=== PATIENT | male | born 1950 | race Caucasian/White ===

== ENCOUNTER 2019-10-24 12:30 | Emergency (ER) | payer OTHER, SELFPAY ==
[2019-10-24 12:41] VITALS: BP 136/72; RESP 18; TEMP 36.1; O2SAT 98
--- NOTE | 2019-10-24 12:47 | DI.CT.S_ITS ---
PROCEDURE: CT HEAD/BRAIN WO CON INDICATIONS: Fall with right orbital laceration. TECHNIQUE: Noncontrast 4.5 mm thick angled axial sections acquired from the foramen magnum to the vertex, with coronal and sagittal reformats. For radiation dose reduction, the following was used: automated exposure control, adjustment of mA and/or kV according to patient size. COMPARISON: [facility], CT, STROKE HEAD AND NECK ANGIO, 03/27/2013, 15:27. [facility], CT, HEAD WITHOUT CONTRAST, 07/27/2016, 23:00. [facility], CT, CT CERVICAL SPINE WO CON, 10/24/2019, 12:43. [facility], CT, HEAD WITHOUT CONTRAST, 09/15/2016, 21:47. FINDINGS: Image quality: Excellent. CSF spaces: Basal cisterns are patent. There is a left-sided drainage catheter is seen within the low-density fluid collection along the lateral/superior aspect of the left frontal lobe. The fluid collection is similar to 2016. The ventricles are symmetric in size and shape. Brain: There is been a remote left temporal lobe resection. There is a 1.2 cm cystic-appearing focus in seen within the right insula, as on series 2 image 14, which is stable compared to 2016. No intracranial bleeds or masses. There is cerebral volume loss for age, with resultant ventricular and sulcal prominence. There are periventricular and deep white matter chronic small vessel ischemic changes. There is intracranial internal carotid artery atherosclerosis. Skull and face: Left sided craniotomy changes are seen. Calvarium and visualized facial bones appear intact, without suspicious lesions. Sinuses: Visualized sinuses and mastoids are clear. IMPRESSION: No acute intracranial hemorrhage is seen. No acute intracranial process is seen. There is a stable extra-axial fluid collection seen along the lateral aspect of the left frontal lobe, which is attributed to a hygroma. There is a drainage catheter seen within the fluid collection. There is a stable cystic lesion involving the right insula. Dictated by: Abdias Landeros M.D. on 10/24/2019 at 11:58 Approved by: Abdias Landeros M.D. on 10/24/2019 at 12:01
--- NOTE | 2019-10-24 12:55 | DI.CT.S_ITS ---
PROCEDURE: CT CERVICAL SPINE WO CON INDICATIONS: Fall TECHNIQUE: Noncontrast 3 mm thick sections acquired from the skull base to the T4 level. Sagittal and coronal reformats were then constructed. For radiation dose reduction, the following was used: automated exposure control, adjustment of mA and/or kV according to patient size. COMPARISON: [facility], CT, CT HEAD/BRAIN WO CON, 10/24/2019, 12:43. [facility], CR, CERVICAL SPINE 2 OR 3 VIEWS, 02/02/2014, 21:55. FINDINGS: Image quality: Excellent. Bones: No fractures or dislocations. Visualized superior ribs are intact. Degenerative changes are seen, with moderate disc space narrowing at C3-C4, C4-C5, and C6-C7. Milder degenerative changes are seen elsewhere, including apparent erosive changes involving the right C4-C5 facet joint. The right C2-C3 facet joint is fused. Soft tissues: Prevertebral soft tissues are normal in thickness. No paravertebral hematomas. No apical pneumothoraces. Pacer leads are partially seen. IMPRESSION: No acute fractures are seen. Degenerative changes are seen. Pacer leads are incidentally noted. Dictated by: Abdias Landeros M.D. on 10/24/2019 at 12:02 Approved by: Abdias Landeros M.D. on 10/24/2019 at 12:03
[2019-10-24 13:00] VITALS: BP 136/78; PULSE 61; O2SAT 94
[2019-10-24 13:07] LABS: Add Manual Diff / Slide Review NO; Basophils Absolute Auto 0 /uL (0-100); Basophils Percent Auto 0.5 % (0-2); Eosinophils Absolute Auto 100 /uL (0-450); Eosinophils Percent Auto 1.2 % (2-4); Hematocrit 48.5 % (41-53); Hemoglobin 16.2 g/dL (13.5-17.5); Lymphocytes Absolute Auto 700 /uL (1100-4500); Lymphocytes Percent Auto 11.3 % (25-40); Mean Corpuscular HGB Conc 33.3 % (30-36); Mean Corpuscular Hemoglobin 29.3 PG (26-34); Mean Corpuscular Volume 87.8 fL (80-100); Monocytes Absolute Auto 600 /uL (0-900); Monocytes Percent Auto 9.6 % (3-14); Neutrophils Absolute Auto 5100 /uL (1500-7000); Neutrophils Percent Auto 77.4 % (50-75); Platelet Count 197 X10^3/uL (150-400); Red Blood Cell Count 5.53 X10^6/uL (4.5-5.9); Red Cell Distribution Width 13.4 % (11.6-14.8); White Blood Cell Count 6.5 X10^3/uL (4.5-11.0)
[2019-10-24] MEDS: LIDOCAINE 2% INJ MDV 10 ML SUBCUT (13:11)
[2019-10-24] MEDS: SODIUM CHLORIDE 0.9% 1,000 ML 1000 ML IV (13:11)
[2019-10-24 13:14] LABS: Alanine Aminotransferase 20 IU/L (<50); Albumin 3.6 g/dL (3.5-5.0); Albumin Globulin Ratio 1.4 (1.0-2.8); Alkaline Phosphatase 61 U/L (38-126); Aspartate Aminotransferase 32 IU/L (17-59); BUN Creatinine Ratio 20.9 (6-22); Bilirubin Total 0.5 mg/dL (0.2-1.3); Blood Urea Nitrogen 23 mg/dL (9-20); Calcium 8.5 mg/dL (8.4-10.2); Carbon Dioxide 27 mmol/L (22-32); Chloride 106 mmol/L (98-107); Estimated Glomerular Filt Rate > 60.0 mL/min (>60); Ethanol (ETOH) < 10 mg/dL; Globulin 2.6 g/dL (1.7-4.1); Glucose 88 mg/dL (80-110); HEMOLYSIS 24 (0-50); Potassium 4.1 mmol/L (3.4-5.1); Sodium 140 mmol/L (137-145); Total Protein 6.2 g/dL (6.3-8.2)
--- NOTE | 2019-10-24 13:25 | PC.NURSE ---
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 Took a GLF on his porch today and hit R head and R orbit on a planter. GCS 14 pt confused, reports year is 1978, having some word salad. unaware of pt's baseline. reports he had some alcohol today. pupils equal and reactive. equal prison officer and pushes. immediate head CT. glucose 89 in field. 18G IV R AC. labs drawn and sent by EMS. Pt with NS infusing. Dr Clarke assessed. awaiting further orders
[2019-10-24 14:30] VITALS: BP 125/68; PULSE 57; RESP 13; O2SAT 96
--- NOTE | 2019-10-24 14:57 | PC.NURSE ---
Pt at bedside. pt speaking more clearly at this time and appears to be less confused than on arrival. he was able to vocalize that before falling he had an intense wave of vertigo and was unable to place his feet underneath him appropriately and fell hitting his head on an umbrella stand. reports that aphasia and some confusion is baseline but seems increasingly more confused today. Reports that the flu has been going around the house starting on Monday and pt had a bout of vomiting in which he vomited his seizure medications, then Monday morning had a seizure while on the toilet. sustained no injury and reports she medicated him with valium as ordered by his epileptologist at [facility] but chose not to bring him to the ED at that time. MD at bedside to suture wounds and speak to about plan of care. no new orders
[2019-10-24 15:00] VITALS: PULSE 59; RESP 15; O2SAT 96
[2019-10-24 15:30] VITALS: BP 130/60; PULSE 58; RESP 15; O2SAT 97
--- NOTE | 2019-10-24 15:43 | ED.AMS ---
HPI - Altered Mental Status <Qian Clarke MD - Last Filed: 11/05/19 19:44> General Chief Complaint: Altered Mental Status Stated Complaint: Neuro post fall gf Time Seen by Provider: 10/24/19 12:47 Source: patient Mode of arrival: Ambulatory Limitations: no limitations History of Present Illness HPI narrative: Patient comes emergency department after taking a fall this morning. states that the patient came out from the bedroom this morning stating that he just didn't feel right. He seemed to be off balance and was not speaking coherently. Patient's states she does not know if the patient had a seizure. She states his last breakthrough seizure was a couple of days ago, and that he required 10 mg of Valium to stop the seizure. The patient went outside to try to sit down with his breakfast and states he almost missed the chair. As patient was walking down the stairs after that, he lost his balance fell and struck an umbrella stand with his head. The patient does not remember the incident and is not able to offer any information a coherent manner at this time. He denies any pain. He has sustained lacerations to his face and head. Related Data Home Medications Medication Instructions Recorded Confirmed tiagabine [Gabitril] 4 mg PO BID #0 09/15/16 10/24/19 ascorbic acid (vitamin C) [Vitamin 500 mg PO 0800 10/24/19 10/24/19 C] aspirin 325 mg PO 0800 10/24/19 10/24/19 brivaracetam 100 mg PO BID 10/24/19 10/24/19 cholecalciferol (vitamin D3) 1,000 unit PO 0800 10/24/19 10/24/19 [Vitamin D3] duloxetine 60 mg PO 199910/24/19 10/24/19 lacosamide [Vimpat] 200 mg PO BID 10/24/19 10/24/19 lamotrigine [Lamictal XR] 250 mg PO BID 10/24/19 10/24/19 metoprolol succinate 25 mg PO 199910/24/19 10/24/19 simvastatin 40 mg PO 199910/24/19 10/24/19 vitamin B complex 1 cap PO DAILY 10/24/19 10/24/19 zonisamide 50 mg PO QPM 10/24/19 10/24/19 zonisamide 200 mg PO BID 10/24/19 10/24/19 Allergies Allergy/AdvReac Type Severity Reaction Status Date / Time lorazepam Allergy Unknown AGITATION Verified 10/24/19 13:33 Sulfa (Sulfonamide Allergy Unknown ITCHING Verified 10/24/19 13:33 Antibiotics) Review of Systems <Qian Clarke MD - Last Filed: 11/05/19 19:44> Review of Systems ROS Unobtainable: All systems reviewed & are unremarkable except as noted in HPI and below Constitutional Constitutional: Denies chills, Denies fatigue, Denies fever(s), Denies frequent falls, Denies lethargy and Denies weakness Eyes Eyes: Denies change in vision, Denies eye discharge, Denies irritation and Denies loss of vision ENT Ears, Nose, Mouth, and Throat: Denies change in voice, Denies dizziness, Denies neck pain, Denies sore throat and Denies throat swelling Cardiovascular Cardiovascular: Denies chest pain, Denies irregular heart rhythm, Denies lightheadedness, Denies palpitations, Denies dyspnea, Denies dyspnea on exertion and Denies orthopnea Respiratory Respiratory: Denies cough, Denies dyspnea, Denies dyspnea on exertion and Denies wheezing Gastrointestinal Gastrointestinal: Denies abdominal pain, Denies change in bowel habits, Denies diarrhea, Denies nausea and Denies vomiting Genitourinary Genitourinary: Denies hematuria, Denies flank pain, Denies urinary incontinence and Denies urinary urgency Musculoskeletal Musculoskeletal: Denies back pain, Denies muscle weakness, Denies neck pain, Denies numbness and Denies tingling Integumentary/Breasts Skin/Breast: Denies pruritus, Denies erythema, Denies rash and Reports wounds (Face and head laceration) Neurologic Neurologic: Denies behavioral changes, Denies confusion, Denies dizziness, Denies frequent falls, Denies loss of vision, Denies numbness, Denies tingling and Denies weakness Psychiatric Psychiatric: Denies anxiety, Denies behavioral changes, Denies confusion, Denies depression, Denies homicidal ideation and Denies suicidal ideation Endocrine Endocrine: Denies fatigue, Denies flushing and Denies palpitations Hematologic/Lymphatic Hematologic/Lymphatic: Denies easy bruising Allergic/Immunologic Allergic/Immunologic: Denies urticaria, Denies throat swelling and Denies wheezing Patient History <Qian Clarke MD - Last Filed: 11/05/19 19:44> Medical History ADJUSTMENT DISORDER WITH DEPRESSED MOOD (Acute) Brain surgery within last 3 months (Inactive) Depression, major, single episode, severe (Acute) Hygroma (Acute) Major depression, recurrent (Acute) Respiratory failure (Inactive) Seizure (Acute) Status epilepticus (Acute) Social History Smoking Status: Never smoker Smoking Status: Never smoker Exam <Qian Clarke MD - Last Filed: 11/05/19 19:44> Initial Vital Signs Initial Vital Signs: Vital Signs Temperature 97.0 F L 10/24/19 12:41 Respiratory Rate 18 10/24/19 12:41 Blood Pressure 136/72 10/24/19 12:41 Pulse Oximetry 98 10/24/19 12:41 Const General: cooperative and well developed Nutritional Appearance: well nourished Orientation: alert, awake and confused HENME Head: normocephalic and atraumatic Ears: external ears normal and TM's normal bilaterally Nose: external nose normal and No nasal discharge Face and sinus: sinuses nontender, face symmetric, no sinus tenderness and No dry mucous membranes Mouth: oral mucosae normal and moist mucous membranes Teeth and gingiva: dentition normal Throat: tonsils normal and uvula midline Eyes General: appearance normal, both eyes and all related structures Eyelids: eyelids normal Conjunctivae: conjunctivae normal Sclera: sclerae normal Pupils: PERRL EOM: EOM intact bilaterally Neck Neck: normal visual inspection, trachea midline, No lymphadenopathy, No midline deformity and No JVD Lymphatic: No lymphedema Chest Chest: normal inspection of the chest Resp Effort & Inspection: normal respiratory effort, able to speak in complete sentences, no respiratory distress and no use of accessory muscles Auscultation: clear to auscultation bilaterally, no rales, no rhonchi and no wheezes Cardio Rate: regular rate Rhythm: regular rhythm Heart Sounds: no click, no gallops, no murmurs and no rubs Pulses: normal peripheral pulses GI Inspection: non-distended Palpation: soft, no hepatosplenomegaly, No guarding, No pulsatile mass and No tender Auscultation: normal bowel sounds Back/Spine/Pelvis Back: No CVA tenderness Cervical Spine: cervical ROM normal and No pain with cervical ROM Thoracic/Lumbar Spine: thoracic and lumbar spine normal to inspection Skin General: no rashes or lesions noted, No jaundice and No petechiae Other: Two lacerations noted, 1 over patient's right lateral face, involving the skin over the inferolateral orbital rim, and 1 on the scalp.. Neuro General: alert, awake, gait normal and no focal motor deficits Speech: speech normal Extrem General: full ROM, no clubbing, cyanosis or edema, no pedal edema and no calf tenderness Psych Appearance: well kempt Mental Status: mental status grossly normal Attitude: cooperative Thought Content: normal and suicidality Judgment: judgment good <Brandin Anne DO - Last Filed: 10/24/19 23:08> Initial Vital Signs Initial Vital Signs: Vital Signs Temperature 97.0 F L 10/24/19 12:41 Respiratory Rate 18 10/24/19 12:41 Blood Pressure 136/72 10/24/19 12:41 Pulse Oximetry 98 10/24/19 12:41 Procedures <Qian Clarke MD - Last Filed: 11/05/19 19:44> Laceration Repair Laceration 1: Site: scalp Side (If applicable): right Size (cm): 3 Description: linear Depth: simple, single layer Local Anesthetic: lidocaine 1% Amount of anesthesia used (mL): 4 Pre-repair: wound explored, irrigated extensively and deep structures intact Skin layer closed with: mellissa Number of sutures: 6 (Springer) Laceration 2: Site: face Side (If applicable): right Size (cm): 1.5 Description: irregular Depth: simple, single layer Amount of anesthesia used (mL): 2 Pre-repair: wound explored, irrigated extensively and deep structures intact Skin layer closed with: nylon Size (cm): 5-0 Number of sutures: 3 Technique: simple, interrupted Course <Qian Clarke MD - Last Filed: 11/05/19 19:44> Course Course Narrative: The patient was observed in the emergency department and worked up with laboratory studies and CT scan of the head. He improved greatly over the course of his time in the emergency department, and became much more coherent. I felt that it was most likely that the patient had had a seizure and was postictal when he came out of his bedroom this morning. I discussed this with the patient and , and they were in agreement that this was the most likely scenario. However, despite improvement in the patient's condition, patient's states she does not feel comfortable taking the patient home. As the patient was a [place] patient, I did discuss the case with them, and Dr. Ladan Phelps accepts at [facility]. Patient remained stable throughout his stay in the emergency department. Orders Ordered: Discontinued Medications Sodium Chloride (Normal Saline 0.9%) 1,000 mls @ 1,000 mls/hr IV BOLUS ONE Stop: 10/24/19 13:58 Last Infusion: 10/24/19 14:16 Dose: 0 mls/hr Documented by: Admin: 10/24/19 13:11 Dose: 1,000 mls/hr Documented by: MELANIE Lidocaine HCl (Xylocaine 2%) 10 ml SUBCUT NOW ONE Stop: 10/24/19 13:00 Last Admin: 10/24/19 13:11 Dose: 5 ml Documented by: MELANIE Vital Signs Vital signs: Vital Signs - 8 hr 10/24/19 15:30 10/24/19 17:43 Pulse Rate 58 L 56 L Respiratory Rate 15 16 Blood Pressure [Left Arm] 130/60 142/73 H Pulse Oximetry 97 97 <Brandin Anne DO - Last Filed: 10/24/19 23:08> Orders Ordered: Discontinued Medications Sodium Chloride (Normal Saline 0.9%) 1,000 mls @ 1,000 mls/hr IV BOLUS ONE Stop: 10/24/19 13:58 Last Infusion: 10/24/19 14:16 Dose: 0 mls/hr Documented by: Admin: 10/24/19 13:11 Dose: 1,000 mls/hr Documented by: MELANIE Lidocaine HCl (Xylocaine 2%) 10 ml SUBCUT NOW ONE Stop: 10/24/19 13:00 Last Admin: 10/24/19 13:11 Dose: 5 ml Documented by: MELANIE Vital Signs Vital signs: Vital Signs - 8 hr 10/24/19 15:30 10/24/19 17:43 Pulse Rate 58 L 56 L Respiratory Rate 15 16 Blood Pressure [Left Arm] 130/60 142/73 H Pulse Oximetry 97 97 MDM - Altered Mental Status <Qian Clarke MD - Last Filed: 11/05/19 19:44> Medical Records Attestation: I reviewed the patient's medical records. Lab Data Attestation: I reviewed the patient's lab results. Result diagrams: 10/24/19 12:39 10/24/19 12:39 Labs: Lab Results 10/24/19 10/24/19 Range/Units 12:39 12:39 WBC 6.5 (4.5-11.0) X10^3/uL RBC 5.53 (4.5-5.9) X10^6/uL Hgb 16.2 (13.5-17.5) g/dL Hct 48.5 (41-53) % MCV 87.8 (80-100) fL MCH 29.3 (26-34) PG MCHC 33.3 (30-36) % RDW 13.4 (11.6-14.8) % Plt Count 197 (150-400) X10^3/uL Neut % (Auto) 77.4 H (50-75) % Lymph % (Auto) 11.3 L (25-40) % [place] % (Auto) 9.6 (3-14) % Eos % (Auto) 1.2 L (2-4) % Baso % (Auto) 0.5 (0-2) % Neut # (Auto) 5100 (4779-4078) /uL Lymph # (Auto) 700 L (8560-4166) /uL [place] # (Auto) 600 (0-900) /uL Eos # (Auto) 100 (0-450) /uL Baso # (Auto) 0 (0-100) /uL Sodium 140 (137-145) mmol/L Potassium 4.1 (3.4-5.1) mmol/L Chloride 106 (98-107) mmol/L Carbon Dioxide 27 (22-32) mmol/L BUN 23 H (9-20) mg/dL Creatinine 1.10 (0.66-1.25) mg/dL Estimated GFR > 60.0 (>60) mL/min BUN/Creatinine Ratio 20.9 (6-22) Glucose 88 (80-110) mg/dL Calcium 8.5 (8.4-10.2) mg/dL Total Bilirubin 0.5 (0.2-1.3) mg/dL AST 32 (17-59) IU/L ALT 20 (<50) IU/L Alkaline Phosphatase 61 (38-126) U/L Total Protein 6.2 L (6.3-8.2) g/dL Albumin 3.6 (3.5-5.0) g/dL Globulin 2.6 (1.7-4.1) g/dL Albumin/Globulin Ratio 1.4 (1.0-2.8) Ethyl Alcohol < 10 ( - 10) mg/dL Point of Care Testing Glucose POC 89 Urine Dip Bedside Urine Glucose Negative Bedside Urine Bilirubin - Negative Bedside Urine Ketone - Negative Urine Specific Hallock 1.010 Bedside Urine Occult Blood - Negative Bedside Urine pH 6.0 Bedside Urine Protein - Negative Bedside Urine Urobilinogen +/- 1mg Bedside Urine Nitrite - Negative Bedside Urine Leukocytes - Negative Esterase Imaging Data CT scan - head: Radiologist's impression: PROCEDURE: CT HEAD/BRAIN WO CON INDICATIONS: Fall with right orbital laceration. TECHNIQUE: Noncontrast 4.5 mm thick angled axial sections acquired from the foramen magnum to the vertex, with coronal and sagittal reformats. For radiation dose reduction, the following was used: automated exposure control, adjustment of mA and/or kV according to patient size. COMPARISON: [facility], CT, STROKE HEAD AND NECK ANGIO, 03/27/2013, 15:27. [facility], CT, HEAD WITHOUT CONTRAST, 07/27/2016, 23:00. [facility], CT, CT CERVICAL SPINE WO CON, 10/24/2019, 12:43. [facility], CT, HEAD WITHOUT CONTRAST, 09/15/2016, 21:47. FINDINGS: Image quality: Excellent. CSF spaces: Basal cisterns are patent. There is a left-sided drainage catheter is seen within the low-density fluid collection along the lateral/superior aspect of the left frontal lobe. The fluid collection is similar to 2016. The ventricles are symmetric in size and shape. Brain: There is been a remote left temporal lobe resection. There is a 1.2 cm cystic-appearing focus in seen within the right insula, as on series 2 image 14, which is stable compared to 2016. No intracranial bleeds or masses. There is cerebral volume loss for age, with resultant ventricular and sulcal prominence. There are periventricular and deep white matter chronic small vessel ischemic changes. There is intracranial internal carotid artery atherosclerosis. Skull and face: Left sided craniotomy changes are seen. Calvarium and visualized facial bones appear intact, without suspicious lesions. Sinuses: Visualized sinuses and mastoids are clear. IMPRESSION: No acute intracranial hemorrhage is seen. No acute intracranial process is seen. There is a stable extra-axial fluid collection seen along the lateral aspect of the left frontal lobe, which is attributed to a hygroma. There is a drainage catheter seen within the fluid collection. There is a stable cystic lesion involving the right insula. Dictated by: Abdias Landeros M.D. on 10/24/2019 at 11:58 Approved by: Abdias Landeros M.D. on 10/24/2019 at 12:01 CT C-spine: Radiologist's impression: PROCEDURE: CT CERVICAL SPINE WO CON INDICATIONS: Fall TECHNIQUE: Noncontrast 3 mm thick sections acquired from the skull base to the T4 level. Sagittal and coronal reformats were then constructed. For radiation dose reduction, the following was used: automated exposure control, adjustment of mA and/or kV according to patient size. COMPARISON: [facility], CT, CT HEAD/BRAIN WO CON, 10/24/2019, 12:43. [facility], CR, CERVICAL SPINE 2 OR 3 VIEWS, 02/02/2014, 21:55. FINDINGS: Image quality: Excellent. Bones: No fractures or dislocations. Visualized superior ribs are intact. Degenerative changes are seen, with moderate disc space narrowing at C3-C4, C4-C5, and C6-C7. Milder degenerative changes are seen elsewhere, including apparent erosive changes involving the right C4-C5 facet joint. The right C2-C3 facet joint is fused. Soft tissues: Prevertebral soft tissues are normal in thickness. No paravertebral hematomas. No apical pneumothoraces. Pacer leads are partially seen. IMPRESSION: No acute fractures are seen. Degenerative changes are seen. Pacer leads are incidentally noted. Dictated by: Abdias Landeros M.D. on 10/24/2019 at 12:02 Appr <Brandin Anne DO - Last Filed: 10/24/19 23:08> Lab Data Labs: Lab Results 10/24/19 10/24/19 Range/Units 12:39 12:39 WBC 6.5 (4.5-11.0) X10^3/uL RBC 5.53 (4.5-5.9) X10^6/uL Hgb 16.2 (13.5-17.5) g/dL Hct 48.5 (41-53) % MCV 87.8 (80-100) fL MCH 29.3 (26-34) PG MCHC 33.3 (30-36) % RDW 13.4 (11.6-14.8) % Plt Count 197 (150-400) X10^3/uL Neut % (Auto) 77.4 H (50-75) % Lymph % (Auto) 11.3 L (25-40) % [place] % (Auto) 9.6 (3-14) % Eos % (Auto) 1.2 L (2-4) % Baso % (Auto) 0.5 (0-2) % Neut # (Auto) 5100 (8565-3931) /uL Lymph # (Auto) 700 L (7221-0875) /uL [place] # (Auto) 600 (0-900) /uL Eos # (Auto) 100 (0-450) /uL Baso # (Auto) 0 (0-100) /uL Sodium 140 (137-145) mmol/L Potassium 4.1 (3.4-5.1) mmol/L Chloride 106 (98-107) mmol/L Carbon Dioxide 27 (22-32) mmol/L BUN 23 H (9-20) mg/dL Creatinine 1.10 (0.66-1.25) mg/dL Estimated GFR > 60.0 (>60) mL/min BUN/Creatinine Ratio 20.9 (6-22) Glucose 88 (80-110) mg/dL Calcium 8.5 (8.4-10.2) mg/dL Total Bilirubin 0.5 (0.2-1.3) mg/dL AST 32 (17-59) IU/L ALT 20 (<50) IU/L Alkaline Phosphatase 61 (38-126) U/L Total Protein 6.2 L (6.3-8.2) g/dL Albumin 3.6 (3.5-5.0) g/dL Globulin 2.6 (1.7-4.1) g/dL Albumin/Globulin Ratio 1.4 (1.0-2.8) Ethyl Alcohol < 10 ( - 10) mg/dL Point of Care Testing Glucose POC 89 Urine Dip Bedside Urine Glucose Negative Bedside Urine Bilirubin - Negative Bedside Urine Ketone - Negative Urine Specific Hallock 1.010 Bedside Urine Occult Blood - Negative Bedside Urine pH 6.0 Bedside Urine Protein - Negative Bedside Urine Urobilinogen +/- 1mg Bedside Urine Nitrite - Negative Bedside Urine Leukocytes - Negative Esterase MDM Narrative Medical decision making narrative: Dr Anne: This patient was not turned over to myself. I am signing this note for administrative purposes only. I had put the discharge diagnosis in on this patient in order for him to be removed from our tracking system here in the emergency department. I had no clinical interaction with the patient. This is a EMR issue that requires me to sign the note. Discharge Plan Departure Patient Disposition: [facility] Clinical Impression: Weakness Fall Qualifiers: Encounter type: initial encounter Qualified Code(s): W19.XXXA - Unspecified fall, initial encounter Discharge Date/Time: 10/24/19 18:56 Prescriptions: No Action tiagabine [Gabitril] 4 MG tablet 4 mg PO BID Qty: 0 RF: 0 simvastatin 40 mg Tablet 40 mg PO 1999 RF: 0 zonisamide 100 mg Capsule 200 mg PO BID RF: 0 metoprolol succinate 25 mg Tablet Extended Release 24 Hr 25 mg PO 1999 RF: 0 duloxetine 60 mg Capsule,Delayed Release(Dr/Ec) 60 mg PO 1999 RF: 0 Vimpat 200 mg Tablet 200 mg PO BID RF: 0 lamotrigine [Lamictal XR] 250 mg Tablet Extended Release 24hr 250 mg PO BID RF: 0 brivaracetam 100 mg Tablet 100 mg PO BID RF: 0 aspirin 325 mg Tablet 325 mg PO 0800 RF: 0 ascorbic acid (vitamin C) [Vitamin C] 500 mg Tablet 500 mg PO 0800 RF: 0 vitamin B complex Capsule 1 cap PO DAILY RF: 0 cholecalciferol (vitamin D3) [Vitamin D3] 1,000 unit Capsule 1,000 unit PO 0800 RF: 0 zonisamide 50 mg Capsule 50 mg PO QPM RF: 0 Referrals: Issac Rosales MD [Primary Care Provider] -
--- NOTE | 2019-10-24 17:41 | PC.NURSE ---
pt awake, with expressive aphasia(baseline per spouse) right temporal with mellissa intact with dry blood , cleaned and irrigated, dried, right cheek with suture intact , irrigated , dried, tolerated procedure well. pt follows command and cooperative, denies headache, nausea. requesting ice water due to severe dry mouth. ice water provided. spouse at bs. spouse concern for pts antiseizure meds needs to be given at 1945, states, that there is 5 of them. reassured. will converse with ems.
[2019-10-24 17:43] VITALS: BP 142/73; PULSE 56; RESP 16; O2SAT 97
== END 2019-10-24 18:56 | disposition short-term general hospital (02) ==
PROVIDERS: Emergency Provider Emergency Medicine; Family Provider Family Medicine; PCP Family Medicine
DX: S01.01XA Laceration without foreign body of scalp, initial encounter (principal); W19.XXXA Unspecified fall, initial encounter; S01.81XA Laceration without foreign body of other part of head, initial encounter
CPT/HCPCS: 12001; 12011; 36415; 70450; 72125; 80053; 80320; 81003; 85025; 93005; 93010; 96360; 99284; 99285